=== PATIENT | female | born 1950 | race African-American/Black ===

== ENCOUNTER 2018-01-08 11:26 | Emergency (ER) | payer SELFPAY, BC ==
[2018-01-08] MEDS: ACETAMINOPHEN 500 MG TAB PO (15:11)
[2018-01-08] MEDS: ONDANSETRON (ODT) 4 MG TAB ODT (15:11)
== END 2018-01-08 16:07 | disposition home or self-care (01) ==
LOC: FTE 11:26
DX: S09.93XA Unspecified injury of face, initial encounter (principal); I10 Essential (primary) hypertension; R51 Headache; W22.8XXA Striking against or struck by other objects, initial encounter; Y92.89 Other specified places as the place of occurrence of the external cause
CPT/HCPCS: 70450; 70486; 99284-25